=== PATIENT | female | born 1995 | race Caucasian/White ===

== ENCOUNTER 2019-10-19 21:07 | Emergency (ER) | payer BC, SELFPAY ==
--- NOTE | ~2019-10-19 | XR_ITS ---
EXAMINATION: XR foot RT min 3V DATE: 10/19/2019 22:25 INDICATION: Right foot pain TECHNIQUE: Dorsoplantar, lateral, and 2 oblique views of the right foot were obtained. COMPARISON: None. FINDINGS: There is no fracture, dislocation, or subluxation. The bones, soft tissues, and joint space s are normal. No radiopaque foreign body is identified. IMPRESSION: 1. No acute osseous abnormality. Reviewed, dictated and finalized at location A.
[2019-10-19 21:13] VITALS: BP 149/99; PULSE 103; RESP 14; TEMP 36.1; O2SAT 99
[2019-10-20 00:39] VITALS: BP 138/91; PULSE 93; RESP 16; O2SAT 100
--- NOTE | 2019-10-20 01:50 | ED.LOWEXIN ---
HPI - Extremity Injury (Lower) General Chief Complaint: Extremity Injury, Lower Stated Complaint: foot pain Time Seen by Provider: 10/19/19 23:54 History of Present Illness HPI Narrative: Patient is a 23-year-old female who presents the ER with right foot pain. Ongoing over the last couple months. Initially treated plantar fasciitis with stretching and anti-inflammatories. She has been going to chiropractor as well for therapy. She is now starting to have pain over the medial aspect of her heel and then earlier tonight she had redness and swelling over the medial aspect of the foot. No known injury or trauma. The redness and swelling is now gone. Related Data Home Medications Medication Instructions Recorded Confirmed bupropion HCl [Wellbutrin SR] 100 mg PO DAILY 10/19/19 sertraline mg 10/19/19 Allergies Allergy/AdvReac Type Severity Reaction Status Date / Time No Known Allergies Allergy Verified 10/19/19 21:20 Review of Systems Constitutional: Constitutional: Denies fever(s) and Denies weakness Musculoskeletal: Musculoskeletal: Denies arthralgias, Denies joint swelling and Denies muscle cramps Comments: Foot pain Neurologic: Denies focal weakness and Denies numbness PMFSH Past Medical History Medical History (Updated 10/20/19 @ 02:04 by Dima Garcia MD) Depression Surgical History Surgical History (Updated 10/20/19 @ 02:02 by Dima Garcia MD) No pertinent past surgical history Social History Social History (Updated 10/20/19 @ 02:03 by Dima Garcia MD) Smoking status: Never smoker Exam Narrative: Exam Narrative: GENERAL: Well-appearing, well-nourished, and in no acute distress. HEAD: Normocephalic, atraumatic. EXTREMITIES: Normal range of motion. No edema. No reproducible tenderness to the right foot or ankle. No tenderness over the plantar fascia. No foreign body noted. Achilles tendon intact and no tenderness over its insertion site. SKIN: Warm, dry, no rash. NEURO: No focal deficits. Alert and oriented x3. PSYCH: Normal mood and affect. Course Course Emergency Course: Unsure what is causing patient's foot discomfort. Discussed that there could be a component of neuropathy. She may need an MRI for evaluation of the soft tissues. Patient seems very distraught over her foot discomfort. Discussed that she should continue to follow-up with her PCP regarding the management and she may benefit from seeing a data warehousing manager. Vital Signs Vital signs: Vital Signs Temperature 97.0 F L 10/19/19 21:13 Pulse Rate 103 H 10/19/19 21:13 Respiratory Rate 14 10/19/19 21:13 Blood Pressure 149/99 H 10/19/19 21:13 Pulse Oximetry 99 10/19/19 21:13 Temperature 97.0 F L 10/19/19 21:13 Pulse Rate 93 10/20/19 00:39 Respiratory Rate 16 10/20/19 00:39 Blood Pressure 138/91 H 10/20/19 00:39 Pulse Oximetry 100 10/20/19 00:39 Discharge Plan Discharge Clinical Impression: Heel pain Patient Disposition: Home, Self-Care Condition: Stable Additional Instructions: Return to ER if you have lower extremity swelling, you have chest pain or shortness of breath, you are unable to flex or extend at the heel/knee, you have additional concerns. Follow-up with your primary care doctor, you may also need to see a data warehousing manager given your foot discomfort. Prescriptions: New tramadol 50 mg tablet 50 mg PO Q6H PRN (Reason: pain) Qty: 14 RF: 0 No Action bupropion HCl [Wellbutrin SR] 100 mg Tablet Sustained-Release 12 Hr 100 mg PO DAILY RF: 0 sertraline 25 mg Tablet RF: 0 Follow-up/Referrals: Cathie,Vargas Florentino MD [Primary Care Provider] - 1 Week
[2019-10-20] MEDS: traMADol HCL 50 MG TABLET PO (02:05)
== END 2019-10-20 02:27 | disposition home or self-care (01) ==
PROVIDERS: Emergency Provider Emergency Medicine; PCP Family Medicine
DX: M79.671 Pain in right foot (principal); F32.9 Major depressive disorder, single episode, unspecified
CPT/HCPCS: 73630; 99283; A9270

== ENCOUNTER → 2021-11-11 12:44 | Outpatient (CLI) | payer OTHER, SELFPAY ==
--- NOTE | ~2021-11-11 | US_ITS ---
EXAMINATION: US pelvic complete DATE: 11/11/2021 13:08 INDICATION: Irregular menstruation Comparison:No prior studies for comparison. TECHNIQUE: Multiple transabdominal sonographic images of the pelvis performed. FINDINGS: The uterus measures 7.7 x 2.2 x 3.3 cm. The endometrial complex measures 6 mm. The right ovary measures 2.4 x 1.3 x 2.1 cm and the left ovary measures 2.7 x 1.2 x 1.5 cm. There ar e small follicles in each ovary. Normal doppler signal in both ovaries. There is no free fluid in the pelvis. There are no abnormal masses seen on either side. IMPRESSION: 1. Unremarkable pelvic ultrasound. Reviewed, dictated and finalized at location A.
== END ==
PROVIDERS: PCP Nurse Practitioner Family; Visit Provider Obstetrics & Gynecology
DX: N92.6 Irregular menstruation, unspecified (principal)
CPT/HCPCS: 76856

== ENCOUNTER 2021-12-10 17:00 | Outpatient (RCR) | payer OTHER, SELFPAY ==
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
--- NOTE | 2021-12-11 12:56 | PTOPEVAL ---
PHYSICAL THERAPY DISCHARGE NOTE Thank you for referring Jenifer Oneill to [facility].? Please review, sign, date and return this plan of care NAM. I agree with and certify that the following plan of care is medically necessary. Referring Physician Date Attending Provider: Maria Del Carmen Ley MD Diagnosis vulvodynia Subjective Information Reports she has been working Query Text:As Reported By Patient/ on her exercises and doing Family well. Thinks she has not made a lot of progress yet but is understanding of the exercises . No changes in pain yet. She reports that she now realizes that she does hold tension within her pelvic floor and she will have to very thoughtfully inhibit the muscle contraction. She also reports that the inhibition of the muscles can be somewhat challenging and not smooth. We discussed this and provided further education that she performing correct exercises and techniques but it will take time. Pelvic Health Evaluation Pelvic Floor Assessment Permission Received for External/ Yes Internal Perineal Exam Sustained Levator Ani Strength 3/5 power; 4seconds 5reps Manual Therapy Manual Therapy Treatment Comments soft tissue mobilization to Query Text:Include Technique and quadratus lumborum and glutes. Result of Technique ; right SIJ mobilization Pelvic Health Therapy Pelvic Health Exercise Isolated Levator Ani Contraction 4seconds on, 4seconds off, Query Text:Position, Hold/Relaxation 5reps x3sets, 2-3x/day Time, Repetitions Other Exercises -prone modified birddog x10 Query Text:Record Sets, Repetitions, each side Resistance and Position -prone quad and hip flexor stretch -supine marching and sequential marching; cues to keep spine neutral -spent significant time discussing strategies to reduce pain with intercourse and to ease into stretching the pelvic floor to prepare for intercoure/tampon/speculum . Endurance Good PT Clinical Summary Jenifer is a 25 yo female presenting to
== END 2021-12-12 08:39 | disposition home or self-care (01) ==
LOC: ANHPT 17:00
PROVIDERS: PCP Nurse Practitioner Family; Visit Provider Obstetrics & Gynecology
DX: N94.819 Vulvodynia, unspecified (principal)
CPT/HCPCS: 97110; 97112; 97140; 97163

== ENCOUNTER 2022-07-08 16:31 | Emergency (ER) | payer OTHER, SELFPAY ==
--- NOTE | ~2022-07-08 | CT_ITS ---
EXAMINATION: CT cervical spine wo con DATE: 07/08/2022 18:13 INDICATION: Head injury. Left neck pain. TECHNIQUE: Computed tomography (CT) of the cervical spine was performed without intravenous contrast. Automated exposure control and iterative reconstruction technique were employed. The dose-length pro duct was 608.89 mGy-cm. COMPARISON: None FINDINGS: There is mild kyphosis of cervical spine. Vertebral body heights and intervertebral disc he ights are normal. The following disc levels are specifically discussed: C2-C3: There is no uncovertebral joint osteoarthritis. There is no facet joint osteoarthritis. There is no neural foraminal stenosis. There is no central canal stenosis. C3-C4: There is mild left uncovertebral joint osteoarthritis. There is mild bilateral facet joint ost eoarthritis. There is no neural foraminal stenosis. There is no central canal stenosis. C4-C5: There is no uncovertebral joint osteoarthritis. There is mild right facet joint osteoarthritis . There is no neural foraminal stenosis. There is mild central canal stenosis. C5-C6: There is no uncovertebral joint osteoarthritis. There is no facet joint osteoarthritis. There is no neural foraminal stenosis. There is no central canal stenosis. C6-C7: There is no uncovertebral joint osteoarthritis. There is no facet joint osteoarthritis. There is no neural foraminal stenosis. There is no central canal stenosis. C7-T1: There is no uncovertebral joint osteoarthritis. There is severe bilateral facet joint osteoart hritis. There is mild bilateral neural foraminal stenosis. There is no central canal stenosis. IMPRESSION: 1. No fracture. 2. Mild cervical spondylosis. Reviewed, dictated and finalized at location A.
--- NOTE | ~2022-07-08 | CT_ITS ---
EXAMINATION: CT brain wo con DATE: 07/08/2022 18:12 INDICATION: Head injury. TECHNIQUE: Computed tomography (CT) of the head was performed without intravenous contrast. The mA wa s adjusted according to patient size. Iterative reconstruction technique was employed. The dose-lengt h product was 605.33 mGy-cm. COMPARISON: None FINDINGS: There is no intracranial hemorrhage, acute infarction, or abnormal intracranial mass lesion . The ventricles are normal in size. The orbits are normal. There is mild mucosal thickening in the e thmoid sinuses. The mastoid air cells are normal. IMPRESSION: 1. Normal brain. Reviewed, dictated and finalized at location A. IMPRESSION: 1. Normal brain.
[2022-07-08 16:50] VITALS: BP 155/106; PULSE 94; RESP 20; TEMP 36.5; O2SAT 100
--- NOTE | 2022-07-08 17:04 | ED.HEATRA ---
HPI - Head Injury General Chief complaint: Head Injury Stated complaint: head injury from dog Wednesday - light senstivity Time Seen by Provider: 07/08/22 16:59 Source: patient Mode of arrival: ambulatory Limitations: no limitations History of Present Illness HPI Narrative: Patient is a 26-year-old female presents to the ED with report of head injury and headache. Patient reports she was kicked in her head by her 100 pound Labrador on Wednesday evening. She sustained a small abrasion to her forehead. No deeper wounds. She denies any LOC. She has had a persistent headache since waking up Wednesday. Pain is frontal and left-sided. She does report having some pain in her left-sided neck and mild lightheadedness yesterday. She also reports having photophobia and phonophobia, but denies nausea, vomiting, fevers, vision changes, syncope, weakness, confusion. Patient has had 1-2 migraines before, but no migraines recently. Related Data Home Medications Medication Instructions Recorded Confirmed bupropion HCl 100 mg tablet,12 hr 100 mg PO DAILY 10/19/19 03/11/22 sustained-release (Wellbutrin SR) sertraline 25 mg tablet mg 10/19/19 03/11/22 L norgest/E estradiol-E estrad 1 tablet PO DAILY 10/23/21 03/11/22 0.15 mg-30 mcg (84)/10 mcg(7) tabs,3mos (Jaimiess) buspirone 10 mg tablet 10 mg PO TID 10/23/21 03/11/22 Allergies Allergy/AdvReac Type Severity Reaction Status Date / Time No Known Allergies Allergy Verified 07/08/22 16:54 Review of Systems Review of Systems: CONSTITUTIONAL: Denies fever, chills, or sweats. EYES: See HPI ENT: See HPI. CARDIOVASCULAR: Denies chest pain. RESPIRATORY: Denies dyspnea. GASTROINTESTINAL: Denies abdominal pain, nausea, vomiting. MUSCULOSKELETAL: See HPI. NEUROLOGIC: See HPI. All systems reviewed & are unremarkable except as noted in HPI and below PMFSH Past Medical History Medical History Depression Surgical History Surgical History History of ankle surgery No pertinent past surgical history Family History Family History Other Acute myocardial infarction Anxiety Asthma Breast cancer Cerebrovascular accident Diabetes mellitus Heart disease Social History Social History Smoking status: Never smoker Alcohol intake: current Alcohol use details: socially Substance use: never Substance use type: former substance user Living arrangements: with family Occupation/Education: occupation 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 HEAD: Normocephalic. Small curvilinear abrasion to forehead, no deeper wounds, lacerations, bleeding. EYES: PERRLA/EOMI, conjunctiva clear. NECK: Supple. No adenopathy, no masses. No midline spinal tenderness. Mild left-sided paraspinal muscle tenderness. RESPIRATORY: Airway patent, respirations nonlabored. Clear to auscultation bilaterally, no rales, rhonchi, wheezing. CARDIOVASCULAR: Regular rate and rhythm without murmurs, rubs, or gallops. Radial pulses 2+ and equal bilaterally. ABDOMINAL: Soft, nontender, nondistended, no hepatosplenomegaly. Normoactive BS. MUSCULOSKELETAL: Moves all extremities. Strength/ROM intact without gross deformities. No midline thoracic or lumbar spinal tenderness. SKIN: Warm, dry, normal color. No rashes. NEURO: A&O X3. Speech clear. Cranial nerves II-XII grossly intact. Steady gait. No ataxic movements. Strength 5 out of 5 in upper and lower extremities bilaterally. 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 No focal deficits. PSYCHIATRI
[2022-07-08] MEDS: SODIUM CHLORIDE 0.9% IV 1,000 ML 999 ML IV CONT (17:42)
[2022-07-08] MEDS: diphenhydrAMINE HCl INJ 50 MG/ML VIAL 25 MG IV PUSH (17:42)
[2022-07-08] MEDS: KETOROLAC 30 MG/ML VIAL (*BKC) IV PUSH (17:43)
[2022-07-08] MEDS: METOCLOPRAMIDE HCL INJ 10 MG/2 ML VIAL IV PUSH (17:43)
[2022-07-08 19:52] VITALS: BP 145/94
== END 2022-07-08 19:50 | disposition home or self-care (01) ==
PROVIDERS: Emergency Provider Physician Assistant; PCP Nurse Practitioner Family
DX: S09.90XA Unspecified injury of head, initial encounter (principal); W54.1XXA Struck by dog, initial encounter; Y93.83 Activity, rough housing and horseplay
CPT/HCPCS: 70450; 72125; 96365; 96375; 99284; J0131; J1100; J1200; J1885; J2765; J7030

== ENCOUNTER 2023-11-23 21:12 | Emergency (ER) | payer OTHER, SELFPAY ==
[2023-11-23 21:19] VITALS: BP 145/78; PULSE 108; RESP 19; TEMP 36.7; O2SAT 98
--- NOTE | 2023-11-23 21:57 | PC.NURSE ---
Pt LWBS at this time. Pt educated on risk of leaving and educated to seek care if any s/s of infection occur. Pt ambulatory out of dept at this time.
== END 2023-11-23 21:57 | disposition left against medical advice (07) ==
PROVIDERS: PCP Nurse Practitioner Family
DX: S51.812A Laceration without foreign body of left forearm, initial encounter (principal); W54.1XXA Struck by dog, initial encounter
CPT/HCPCS: 99199